=== PATIENT | female | born 1995 | race Caucasian/White ===

== ENCOUNTER 2017-03-05 08:15 | Emergency (ER) | payer MEDICAID ==
[2017-03-05 08:42] VITALS: BMI 32.1
[2017-03-05 08:45] VITALS: TEMP 98.7; O2SAT 99
[2017-03-05] MEDS ORDERED: Sodium Chloride 0.9% 1,000 ML IV STA (09:52)
[2017-03-05 10:08] LABS: ADD MANUAL DIFF? NO
[2017-03-05 10:12] LABS: BASO # 0.01 K/mm3 (0.0-2.0); BASO % 0.2 % (0.0-3.0); EOS # 0.1 (0.0-0.7); EOS % 2.1 % (1.5-5.0); GRAN # 1.67 (1.4-6.5); GRAN % 35.3 % (50.0-68.0); HEMATOCRIT 39.4 % (36.0-48.0); LYMPH # 2.5 (1.2-3.4); LYMPH % 53.5 % (22.0-35.0); MEAN CELL VOLUME 84.5 fL (80.0-105.0); MEAN CORPUSCULAR HEMOGLOBIN 29.6 pg (25.0-35.0); MEAN PLATELET VOLUME 8.8 fl (7.0-11.0); MONO # 0.4 (0.1-0.6); MONO % 8.9 % (1.0-6.0); PLATELET COUNT 250 10^3/uL (120.0-450.0); RED CELL DISTRIBUTION WIDTH 13.5 % (11.5-14.5); URINE BILIRUBIN NEGATIVE (NEGATIVE); URINE BLOOD TRACE-INTACT (NEGATIVE); URINE GLUCOSE (UA) NEGATIVE (NEGATIVE); URINE KETONE NEGATIVE (NEGATIVE); URINE LEUKOCYTE ESTERASE NEGATIVE Leu/uL (NEGATIVE); URINE PROTEIN NEGATIVE mg/dL (<30 mg/dL); URINE UROBILINOGEN 0.2 E.U./dL (<1 E.U./dL); WHITE BLOOD COUNT 4.7 10^3/ul (4.5-11.0)
[2017-03-05 10:20] LABS: URINE APPEARANCE CLEAR (CLEAR); URINE COLOR YELLOW (YELLOW)
[2017-03-05 10:22] LABS: URINE BACTERIA FEW (NEG); URINE RBC 0 - 2 /hpf (0-2); URINE WBC 0 - 2 /hpf (0-6)
[2017-03-05 10:23] LABS: ALB/GLOB RATIO 1.2 (1.1-1.8); ALKALINE PHOSPHATASE 48 U/L (38-133); ALT/SGPT 42 U/L (7-56); AST/SGOT 26 U/L (15-39); BILIRUBIN,TOTAL 0.7 mg/dL (0.2-1.3); BLOOD UREA NITROGEN 11 mg/dL (7-21); CALCIUM 9.2 mg/dL (8.4-10.5); CARBON DIOXIDE 27 mmol/L (21-33); CHLORIDE 101 mmol/L (98-107); GFR AFRICAN-AMERICAN > 60; GLUCOSE,RANDOM 77 mg/dL (70-110); LIPASE 100 U/L (23-300); POTASSIUM 3.5 mmol/L (3.6-5.0); SODIUM 139 mmol/L (132-148); TOTAL PROTEIN 7.9 g/dL (5.8-8.3)
--- NOTE | 2017-03-05 10:27 | ED PDOC ---
Arrival/HPI - General Chief Complaint: GI Problem Time Seen by Provider: 03/05/17 09:31 Historian: Patient - History of Present Illness Narrative History of Present Illness (Text): 03/05/17 10:25 A 22 year old female presents to the emergency department complaining of one day duration epigastric discomfort. Patient also reports nausea and loose watery stool. Patient notes no exacerbating or relieving factors. Patient denies any other complaints at this time. Time/Duration: 24 hours Symptom Onset: Sudden Symptom Course: Unchanged Activities at Onset: Rest Modifying Factors (Text): none Context: Home Associated Symptoms (Text): nausea and loose watery stool Past Medical History - Provider Review Nursing Documentation Reviewed: Yes - Psychiatric Hx Substance Use: No Family/Social History - Physician Review Nursing Documentation Reviewed: Yes Family/Social History: No Known Family HX Smoking Status: Never Smoked Hx Alcohol Use: No Hx Substance Use: No Allergies/Home Meds Allergies/Adverse Reactions: Allergies amoxicillin Allergy (Verified 03/05/17 08:42) ANAPHYLAXIS Review of Systems - Physician Review All systems were reviewed & negative as marked: Yes Physical Exam - Physical Exam Narrative Physical Exam (Text): 03/05/17 10:28- Review of Systems Constitutional: Normal. absent: Fatigue, Weight Change, Fevers Eyes: Normal ENT: Normal Respiratory: Normal absent: SOB, Cough, Sputum Cardiovascular: Normal absent: Chest pain, Palpitations, Syncope Gastrointestinal: Present: nausea, epigastric discomfort absent: Diarrhea, Vomiting Genitourinary: Present: loose watery stool absent: Dysuria, Frequency, Hematuria Musculoskeletal: Normal. absent: Arthralgias, Back Pain, Neck Pain Skin: Normal Neurological: Normal absent: Focal Weakness Endocrine: Normal Hemo/Lymphatic: Normal Psychiatric: Normal - Physical exam Patient appears age appropriate, speaking full sentences without difficulty - Systems Exam Head: Present: Atraumatic, Normocephalic Pupils: Present: PERRL Extraocular Muscles: Present: EOMI Conjunctiva: Present: Normal Mouth: Present: Moist Mucous Membranes Neck: Present: Normal Range of Motion. No: MIDLINE TENDERNESS, Paraspinal Tenderness Respiratory/Chest: Present: Clear to Auscultation, Good Air Exchange. No: Respiratory Distress, Accessory Muscle Use, Tachypneic Cardiovascular: Present: Regular Rate and Rhythm, Normal S1, S2, Peripheral Pulses Present. No: Murmurs Abdomen: Present: Normal Bowel Sounds, No: Tenderness, Peritoneal Signs, Rebound, Guarding, Distention Back: Present: Normal Inspection. No: Midline Tenderness, Paraspinal Tenderness Upper Extremity: Present: Normal Inspection. No: Cyanosis, Edema Lower Extremity: Present: Normal Inspection. No: Edema Neurological: Present: GCS=15, Speech Normal, cranial nerves II through XII fully intact with no cerebellar abnormality, neuro-sensory fully intact. No focal neurological deficits. Skin: Present: Warm, Dry, Normal Color. No: Rashes Lymphatic: Present: OX3, NI, NC Psychiatric: Present: Alert, Oriented x 3, Normal Insight, Normal Concentration Vital Signs Reviewed: Yes Vital Signs Temp Pulse Resp BP Pulse Ox 03/05/17 08:42 98.7 F 78 16 115/79 99 Temperature: Afebrile Blood Pressure: Normal Pulse: Regular Respiratory Rate: Normal Appearance: Positive for: Well-Appearing, Non-Toxic, Comfortable Pain Distress: None Mental Status: Positive for: Alert and Oriented X 3 Medical Decision Making ED Course and Treatment: 03/05/17 10:30 Impression: A 22 year old female with one day duration of epigastric discomfort, nausea and loose watery stool. On physical exam, patient had no acute findings. Differential Diagnosis include but are not limited to: dehydration vs. gastroenteritis Plan: -- Urinalysis -- labs -- IV fluids, Toradol, Zofran -- Reassess and disposition Progress Notes: 03/05/17 11:00 On reevaluation, patient reports that she feels much better and would like to be discharged home. Patient's repeat abdominal exam is soft, nontender, non distended with positive bowel sounds in all 4 quadrants and no peritoneal signs. Patient is tolerating PO without any difficulty. Pt states she understands to return to the ER right away for new or worsening symptoms or for inability to f/u with PMD or specialist as instructed. Patient states that she fully agrees with and understands discharge instructions. States that she agrees with the plan and disposition. Verbalized and repeated discharge instructions and plan. I have given the patient opportunity to ask any additional questions. - Lab Interpretations Lab Results: 03/05/17 10:00 03/05/17 10:00 Lab Results 03/05/17 10:00: Sodium 139, Potassium 3.5 L, Chloride 101, Carbon Dioxide 27, Anion Gap 15, BUN 11, Creatinine 0.7, Est GFR ( Amer) > 60, Est GFR (Non- Af Amer) > 60, Random Glucose 77, Calcium 9.2, Total Bilirubin 0.7, AST 26, ALT 42, Alkaline Phosphatase 48, Total Protein 7.9, Albumin 4.3, Globulin 3.6, Albumin/Globulin Ratio 1.2, Lipase 100 03/05/17 10:00: Urine Color Yellow, Urine Appearance Clear, Urine pH 6.0, Ur Specific Edison 1.020, Urine Protein Negative, Urine Glucose (UA) Negative, Urine Ketones Negative, Urine Blood Trace-intact H, Urine Nitrate Negative, Urine Bilirubin Negative, Urine Urobilinogen 0.2, Ur Leukocyte Esterase Negative , Urine RBC 0 - 2, Urine WBC 0 - 2, Ur Epithelial Cells 4 - 5, Urine Bacteria Few 03/05/17 10:00: WBC 4.7, RBC 4.66, Hgb 13.8, Hct 39.4, MCV 84.5, MCH 29.6, MCHC 35.0, RDW 13.5, Plt Count 250, MPV 8.8, Gran % 35.3 L, Lymph % (Auto) 53.5 H, [place] % (Auto) 8.9 H, Eos % (Auto) 2.1, Baso % (Auto) 0.2, Gran # 1.67, Lymph # 2.5, [place] # 0.4, Eos # 0.1, Baso # 0.01 - Medication Orders Current Medication Orders: Discontinued Medications Sodium Chloride (Sodium Chloride 0.9%) 1,000 mls @ 999 mls/hr IV .Q1H1M STA Stop: 03/05/17 10:52 Last Admin: 03/05/17 09:55 Dose: 999 mls/hr Ketorolac Tromethamine (Toradol) 15 mg IVP STAT STA Stop: 03/05/17 09:53 Last Admin: 03/05/17 10:09 Dose: 15 mg Ondansetron HCl (Zofran Inj) 4 mg IVP STAT STA Stop: 03/05/17 09:53 Last Admin: 03/05/17 10:08 Dose: 4 mg - Scribe Statement The provider has reviewed the documentation as recorded by the Mariamibvilma Waldron All medical record entries made by the Mariamibvilma were at my direction and personally dictated by me. I have reviewed the chart and agree that the record accurately reflects my personal performance of the history, physical exam, medical decision making, and the department course for this patient. I have also personally directed, reviewed, and agree with the discharge instructions and disposition. Disposition/Present on Arrival - Present on Arrival Any Indicators Present on Arrival: No History of DVT/PE: No History of Uncontrolled Diabetes: No Urinary Catheter: No History of Decub. Ulcer: No History Surgical Site Infection Following: None - Disposition Have Diagnosis and Disposition been Completed?: Yes Diagnosis: Nausea Disposition: HOME/ ROUTINE Disposition Time: 11:00 Patient Plan: Discharge Condition: GOOD Discharge Instructions (ExitCare): Acute Nausea and Vomiting (ED), Gastroenteritis (ED) Additional Instructions: PLEASE RETURN TO THE EMERGENCY DEPARTMENT FOR NEW OR WORSENING SYMPTOMS. RETURN RIGHT AWAY IF YOU CANNOT FOLLOW UP WITH YOUR PRIMARY CARE DOCTOR, CLINIC, OR SPECIALIST IN 1-2 DAYS. Prescriptions: Famotidine [Pepcid] 20 mg PO BID #14 tab Ondansetron [Zofran Odt] 4 mg PO Q6 PRN #14 odt PRN Reason: Nausea/Vomiting Referrals: Latrell Ramos MD [Primary Care Provider] - Follow up with primary Forms: WORK NOTE
[2017-03-05 11:20] VITALS: BP 108/63; PULSE 60; RESP 16
== END 2017-03-05 11:22 | disposition home or self-care (01) ==
LOC: ED 08:15
DX: R11.0 Nausea (principal)
CPT/HCPCS: 80053; 81001; 83690; 85025; 96374; 96375; 99284; J1885; J2405; J7040